=== PATIENT | male | born 1955 | race Caucasian/White ===

== ENCOUNTER 2023-05-03 15:55 | Inpatient (IN) | payer MEDICARE, OTHER, SELFPAY ==
[2023-05-03] VITALS (7 sets, daily range): BP systolic 126–150; BP diastolic 70–85; BMI 24.5
--- NOTE | 2023-05-03 13:50 | ED.CVA ---
History of Present Illness
General
Chief Complaint: CVA/TIA Symptoms
Source: patient and spouse
Time Seen by Provider: 05/03/23 13:40
Onset of Stroke Symptoms
Onset of symptoms known: Yes
Date of onset of symptoms: 05/03/23
Time of onset of symptoms: 12:30
Travel History
Have you had any contact with someone who has COVID-19?: No
Do you have any symptoms of coronavirus? Fever > 100 degrees, chills, cough, shortness of breath, sore throat, loss of taste or smell, muscle aches, or headache?: No
History of Present Illness
History of Present Illness:
67-year-old male presents to the emergency room complaining of right leg numbness. Patient states he had a sudden onset of right leg numbness. He has not appreciated any focal weakness or other symptoms besides the leg numbness. The numbness
persists. Patient has had a stroke in the past. He had a stroke involving the right side of his body 2016 for which she received tPA. He had an almost complete resolution of his symptoms ultimately. Patient had been feeling well up until the
onset of this leg numbness.
Past History
Past History
ED Past Medical History: CVA (He did have a CVA 07/2014 and another on 07/2015 where an MRI showed multiple silent strokes according to the family.), HTN, Hypercholesterolemia, Other (syncope) and Other (Has [employer] loop recorder)
Social History
Tobacco: Non-smoker
Alcohol: Daily (3 beers)
Drug: None
Personal:
Living: with family
Employment: Employed
Family History
Family History: Other (stroke and CAD)
Phy Exam
Physical Exam
Physical Exam:
General: Awake, Alert, Oriented X3. No acute distress.
Vitals: unremarkable
Head: Atraumatic
Eyes: Pupils equal, EOMI
Throat: Airway intact, no exudates
Neck: Trachea midline
Lungs: Clear and equal b/l
Heart: Regular rate, no murmurs
Abd: Soft, Nontender, No pulsatile mass
Neuro: Cranial nerves intact, mild weakness right foot. Proximal right leg strength is intact. Muscle strength intact about the rest of the body. Mild decrease sensation right lower extremity
Skin: Warm, dry, no rash
Extremities: pulses equal b/l, no edema
Course
Orders/Labs/Results
Orders:
Orders
05/03/23 13:47
CT Head W/o Cont STROKE ALERT Urgent
Comment:
Reason For Exam: r leg weakness
Cardiac Monitoring- Treatment ONCE
05/03/23 13:49
Electrocardiogram (*1) Stat
Reason for Study: Other
Other Reason for Exam: neuro symptoms
EKG- Treatment ONCE
05/03/23 13:51
Alcohol Urgent
Basic Metabolic Panel Urgent
C-Reactive Protein Urgent
Comment: ADD ON
Cardiovascular Evaluation Urgent
Comment: ADD ON
Complete Blood Count/With Diff Urgent
Erythrocyte Sed Rate Urgent
Comment: ADD ON
Ferritin Urgent
Comment: ADD ON
Folate Urgent
Comment: ADD ON
TSH Reflex To Free T4 Urgent
Comment: ADD ON
Vitamin B12 Urgent
Comment: ADD ON
05/03/23 14:07
MR Brain Without Contrast Routine
Comment:
Reason For Exam: ? left leg numbness
Recent pill cam endoscopy?: No
05/03/23 14:09
Add On- LAB Routine
Comments:: Please add to today's labs or draw as routine
Tests Added?: TSH reflex, Ferritin, Folate, Vit. B12, ESR, lipid profiles
Lorazepam [Ativan] 1 mg PO ONCE PRN PRN
05/03/23 14:51
CT Head & Neck Angio W/wo IV Routine
Comment:
Reason For Exam: stenosis
05/03/23 14:52
Add On- LAB Routine
Comments:: Please add to today's labs or draw as routine
Tests Added?: EtOH, CRP
05/03/23 Dinner
Cholesterol Lowering
At Your Request: Full Participation
Does patient need a safe tray?: No
Fluid Restriction: 1440 mL/day (48 oz)
05/03/23 15:42
Admit/Transfer Patient As Directed
Co-Sign Provider:
Level of Care: Inpatient admission
Assign to:: Telemetry
Physician / Group: Conrad
Diagnosis: Acute right leg numbness r/o CVA
Reason for Telemetry: CVA/TIA
Date to Stop Telemetry: 05/06/23
Time to Stop Telemetry: 11:00
Reason for Hospitalization: See progress note
Expected length of stay greater than two midnights?: Yes
ELOS- Estimated Length of Stay in days: 2
I certify the patient meets the requirements for IP care: Yes
05/03/23 15:44
Code Status As Directed
Resuscitation Status: Full Code
05/03/23 16:00
Clopidogrel Bisulfate [Plavix] 75 mg PO DAILY
05/03/23 17:08
Acetaminophen [Tylenol] 650 mg PO Q4HPRN PRN
Lorazepam [Ativan] 0.5 mg PO DAILYPRN PRN
05/03/23 17:08
NEUROLOGY CONSULT Routine
Consulting Provider: Haris Morris
Was physician already notified: Yes
Reason for consult: rt leg numbness
Urine Osmolality Random [Osmolality, Random Urine] Routine
Urine Sodium Routine
Activity As Directed
Activity Level: As Tolerated
I&O [Intake/ Output] As Directed
Frequency: q12h
Sequential Compression Device [Pneumatic Compression Sleeves] As Directed
Type: Knee high
Ot Eval And Treat Routine
Pt Eval And Treat Routine
Activity Level: As Tolerated
DX Deep Vein Thrombosis Video Routine
05/03/23 17:23
VerifyNow Aspirin Routine
Pt on daily regimen OR been given initial dose of aspirin?: Yes
Comment: may use blood in lab
05/03/23 17:25
Pantoprazole [Protonix] 40 mg PO DAILYPRN PRN
05/04/23 06:00
Basic Metabolic Panel IN AM
Cortisol, Random IN AM
TSH IN AM
05/04/23 08:00
Aspirin Low Dose EC [Aspir Low (Enteric Coated)] 81 mg PO DAILY
Atorvastatin [Lipitor] 20 mg PO DAILY
Cyanocobalamin [Vitamin B-12] 1,000 mcg PO DAILY
Felodipine Extended Release [Plendil Extended Release] 5 mg PO DAILY
Lisinopril [Zestril] 20 mg PO DAILY
05/06/23 11:00
DC Protocol for Telemetry ONCE
Abnormal Lab Results
05/03/23
13:51
MCH 32.5 H pg
(27.0-31.0)
Absolute Monos (auto) 0.7 H 10^3/uL
(0.1-0.6)
Monocytes % 11.0 H %
(1.7-9.3)
Sodium 130 L mmol/L
(135-145)
Chloride 95 L mmol/L
(98-107)
Folate > 20.0 H ng/ml
(2.76-20)
05/03/23 13:51
05/03/23 13:51
Vital Signs
Initial and Last Documented VS:
Initial Vital Signs
Temp Pulse Resp BP Pulse Ox
98.4 F 62 16 147/77 99
05/03/23 13:28 05/03/23 13:28 05/03/23 13:28 05/03/23 13:28 05/03/23 13:28
Last Documented Vital Signs
Temp Pulse Resp BP Pulse Ox
98.7 F 55 24 142/85 97
05/03/23 17:18 05/03/23 17:18 05/03/23 17:18 05/03/23 17:18 05/03/23 17:18
MDM/Problems Addressed
Differential Diagnosis Includes:
CVA, TIA, electrolyte abnormality, UTI
MDM/Problems Addressed:
Patient presents with right leg numbness. NIH score for me is 0-1.
*Radiology
Radiology exam reviewed: radiology read reviewed
*Pulse Oximetry
Patient hypoxic: no
*Critical Care Note
Total Time (30-74mins, 75-104mins- exclusive of procedures): Not Applicable
ED Attending Note
-
Portions of this chart may have been created with voice recognition software.� Occasional wrong word or��sound alike� substitutions may have occurred due to the inherent limitations of voice recognition software.
Discharge Plan
Departure
Patient Disposition: Admit
Date of Disposition: 05/03/23
Time of Disposition: 15:27
Admit to: Telemetry
Presentation/result/management discussed w/ accepting MD/DO: Hospitalist
Condition: Fair
Discharge Problem:
Acute CVA (cerebrovascular accident)
Interventions
Interventions:
*Risk Screen - Suicide Last Done: 05/03/23 17:23
*General Assessment Last Done: 05/03/23 13:28
*Neglect/Abuse Screening Last Done: 05/03/23 13:28
ED- Fall Risk Assessment Last Done: 05/03/23 13:47
*ED COVID-19 Vaccine History Last Done: 05/03/23 17:23
*Nursing Disposition Last Done: 05/03/23 16:28
ED- Pulmonary Assessment Last Done: 05/03/23 13:47
ED- Neurological Assessment Last Done: 05/03/23 13:47
ED- Cardiac Assessment Last Done: 05/03/23 13:47
ED Swallowing Screen Last Done: 05/03/23 13:47
Discharge Date and Time
Discharge Date/Time: 05/03/23 16:55
[2023-05-03 13:52] LABS: Glucose - Point of Care 87 mg/dl (70-99)
--- NOTE | 2023-05-03 13:54 | CON.NEURO ---
Neuro Assessment/Plan
Assessment
IMPRESSIONS/RECOMMENDATIONS:
Abrupt change in right lower extremity sensation
Differential diagnosis includes acute ischemic stroke, worsening of patient's underlying peripheral neuropathy, least likely related to spinal issues
Patient was not a candidate for either tenecteplase or intra-arterial thrombectomy due to NIH stroke scale less than 6
Plan
Would add clopidogrel to aspirin, continue aspirin
Check MRI of brain
Check CT angiogram of head and neck for potential stenosis
Check blood work to ensure efficacy of aspirin
Check blood work for other potential metabolic abnormalities
Medical educational material should be provided
DVT prophylaxis
Continue patient's usual atorvastatin 20 mg daily
Follow lipid profile
Continue vitamin B12 1000 mcg daily with lab value reevaluation
Will continue to follow patient.
Consultation
Order
Date of Consultation: 05/03/23
Requesting Provider:
Reason for Consult:
Subjective/Objective
Subjective Data
Date of Service: May 03, 2023
From my consultation on this patient June 2015:
R-handed
New onset of change of mentation leading to presentation to ED
Pt was in usual state of health prior to awakening at 05:30 on day of presentation.
Bedtime at 21:30, awoke at 04:00, and went to bathroom without issue. However, then awoke w/o alarm at 05:30 with severe headache (CORTEZ):
R shinto location
Quality: sharp then aching, moving to back of head
Intensity: 8/10 max, now 6/10
Neck also involved
CORTEZ began to improve 15 mins after start, however, began to have sense of disorientation followed by nausea
Then sat on side of bed leading to development of dry heaves followed by slurred speech and staggering of gait
05:55 called EMS
Then second attempt to ambulate also led to dry heaves, then slurring words, associated w/ disorientation
Does recall episode
Said yes to do you need EMS
Not yet back to normal, but has improved after ED arrival
No clear improving or worsening factors
Heaviness in chest 15 mins prior to this interview
06/2014: in [place] then had sense of change of mentation then visual change then syncope x 5 mins
Then awoke w/o residua, drove home w/o issues
Saw local neurologist
Check of EMG and MRI of brain
Chronic history of numbness in feet dx w/ neuropathy
~~~~
Subsequently, patient was treated with lifelong aspirin after undergoing transesophageal echocardiogram and having implantable bar turner which did not indicate a dysrhythmia also underwent hypercoagulable profile as an outpatient with an
increase in his usual simvastatin dosing. Patient was described as having a peripheral neuropathy presumed to be a combination of EtOH overexposure and mild B12 deficiency.
He reports increased headaches in past several months bitemporal in location. Absent photophobia, phonophobia, nausea, emesis. Usually treated with OTC medications, resolves after going to sleep.
In the past month he has experienced right heel discomfort similar to prior symptoms on left heel unable to run since prior to stroke in 2016.
Today at 1230 hrs., patient began experiencing new worsening of discomfort in the right lower extremity now involving the entire leg without involvement of the arm or face. The contralateral side was also not involved. No known modifying factors.
No other known associated symptoms.
Objective Data
Vital Signs
Temp Pulse Resp BP Pulse Ox
36.9 C 62 16 147/77 99
05/03/23 13:28 05/03/23 13:28 05/03/23 13:28 05/03/23 13:28 05/03/23 13:28
Patient Allergies
Sulfa (Sulfonamide Antibiotics) Allergy (Verified 05/03/23 13:26)
Unknown
CVA Assessment
Onset of Stroke Symptoms
Onset of symptoms known: Yes
Date of onset of symptoms: 05/03/23
Time of onset of symptoms: 12:30
Time pt last seen normal is known: Yes
Date last time pt seen normal: 05/03/23
Time last time pt seen normal: 12:30
NIH Stroke Score
Level of Consciousness: 0 - Alert
LOC Questions: 0-Answers both correctly
LOC Commands: 0-Performs both correctly
Best Horizontal Gaze: 0-Normal
Visual Garnica: 0=Normal, no visual loss
Facial Palsy: 0=Normal, symmetrical
Motor - Right Arm: 0=No drift 10 seconds
Motor - Left Arm: 0=No drift 10 seconds
Motor - Right Le-No drift 5 seconds
Motor - Left Le-No drift 5 seconds
Limb Ataxia: 0-Absent
Sensation: 0-Normal
Best Language: 0-No aphasia
Dysarthria: 0-Normal
Extinction and Inattention: 0-No abnormality
Total Score:: 0
Tenecteplase Contraindications
Inclusion and Exclusion criteria reviewed: Yes
Modified Gibran Score (MRS)
-
MRS Score:
Review of Systems
-
History Source: Patient
All other systems: Reviewed and negative
EENT: Negative Swallowing Difficulty
Respiratory: Negative Trouble Breathing
Cardiac: Negative Chest Pain
Abdomen/GI: Negative Incontinence of Stool
Genitourinary: Negative Incontinence
Musculoskeletal: Negative Back Pain or Neck Pain
Neuro: Negative Dizzy or Headache
Physical Exam
-
General: No Apparent Distress and Appears Stated Age
Eyes: OU Absent Papilledema, Round OU, [place] Conjunctivae and No Ptosis
HEENT: Anicteric and Moist Mucous Membranes
Neck: Full Range of Motion
Respiratory: No Dyspnea
Cardiac: No JVD
GI: Non-distended
Skin: Unremarkable
Extremities: No Clubbing, No Cyanosis and No Edema
Psych: Intact Judgement/Insight
Extended Neurological Exam
Mood & Affect: Mood Unremarkable and Affect Unremarkable
Attention Span & Concentration: Awake, Alert, Interactive and Mild Difficulty with 2 Step Request
Memory: Unremarkable
Tremor: Hand Tremor Absent and Head Tremor Absent
Speech: Quality Unremarkable and Quantity Unremarkable
Cranial Nerve II: Left Eye: Pupillary Reactivity Unremarkable, Pupillary Size Unremarkable and Visual Garnica Intact
Cranial Nerve II: Right Eye: Pupillary Reactivity Unremarkable, Pupillary Size Unremarkable and Visual Garnica Intact
Cranial Nerves III, IV, : Extraocular Movement: Extraocular Movement Full in all Directions
Cranial Nerve VII: Facial Symmetry: Normal Facial Symmetry
Cranial Nerve VIII: Hearing: Unremarkable Hearing to Normal Conversational Volume
Cranial Nerves IX, X: Palate Movement: Palate Elevation Symmetric
Cranial Nerve XI: Shoulder Shrug: Unremarkable
Cranial Nerve XII: Tongue Protusion: Midline
Muscle Strength, Overall: Full Throughout
Muscle Bulk & Tone: Bulk Unremarkable and Tone Unremarkable
Pronator Drift: No Drift in Upper Extremities
Deep Tendon Reflexes: Trace Throughout
Touch Sensation: Unremarkable
Coordination: Fkpsqx-blwk-ffwbwi Testing Unremarkable
Babinski Sign: Absent Bilaterally
Data Reviewed
-
CT Head: Image Reviewed
Labs: Ordered and Report Reviewed
Lipid Profile: Report Reviewed
Reviewed with: Physician, Nurse, Patient and Family
Old Records: Summarized
Medications
-
Home Medications
Medication Instructions Recorded
benazepril 20 mg tablet (Lotensin) 20 mg PO DAILY 06/27/15
hydrochlorothiazide 25 mg tablet 25 mg PO DAILY 06/27/15
lorazepam 0.5 mg tablet 0.5 mg PO DAILYPRN PRN anxiety 06/27/15
aspirin 81 mg tablet,delayed 81 mg PO DAILY 06/29/15
release
cyanocobalamin (vitamin B-12) 1,000 mcg PO DAILY ##30 06/29/15
1,000 mcg tablet
simvastatin 40 mg tablet 40 mg PO HS ##30 06/29/15
felodipine 5 mg tablet,extended 5 mg PO DAILY 05/21/17
release 24 hr
Past History
Past History
ED Past Medical History: CVA (He did have a CVA 07/2014 and another on 07/2015 where an MRI showed multiple silent strokes according to the family.), HTN, Hypercholesterolemia, Other (syncope, neuropathy) and Other (Has [employer] loop recorder)
Social History
Tobacco: Non-smoker
Alcohol: Daily (3 beers)
Drug: None
Personal:
Living: with family
Employment: Employed
Family History
Family History: Other (stroke and CAD)
[2023-05-03 14:07] LABS: % Basophils 0.5 % (0-2); % Eosinophils 0.9 % (0-6); % Immature Granulocytes 0.2 % (0-0.5); % Lymphocytes 24.3 % (20.5-51.1); % Neutrophils 63.1 % (42.2-75.2); Absolute Eosinophils 0.1 10^3/uL (0-0.7); Absolute Lymphocytes 1.6 10^3/uL (1.2-3.4); Absolute Monocytes 0.7 10^3/uL (0.1-0.6); Absolute Neutrophils 4.2 10^3/uL (1.4-6.5); Hematocrit 44.4 % (39.0-52.0); Hemoglobin 15.7 g/dL (13.0-18.0); Mean Corp Hgb Conc. 35.4 g/dL (33.0-37.0); Mean Corpuscular Hgb 32.5 pg (27.0-31.0); Mean Corpuscular Volume 91.9 fL (80.0-94.0); Mean Platelet Volume 9.2 fL (7.4-10.4); Nucleated Red Blood Cells % 0 % (-); Platelet Count 232 10^3/uL (130-400); Red Blood Cell Count 4.83 10^6/uL (4.70-6.10); Red Cell Dist. Width 12.6 % (11.5-14.5); White Blood Cell Count 6.6 10^3/uL (4.8-10.8)
[2023-05-03 14:21] LABS: Blood Urea Nitrogen 19 mg/dl (9-20); Calcium 9.4 mg/dl (8.4-10.2); Carbon Dioxide 28 mmol/L (22-30); Chloride 95 mmol/L (98-107); Estimated Creatinine Clearance 80 ml/min; Glucose 95 mg/dl (70-99); Potassium 3.7 mmol/L (3.5-5.1); Sodium 130 mmol/L (135-145); eGFR > 60.00
[2023-05-03 15:02] LABS: HDL Cholesterol 87 mg/dl; LDL Cholesterol, Calculated 73 mg/dl; Total Cholesterol 170 mg/dl (50-199); Triglyceride 54 mg/dl (10-149); Very Low Density Lipoprotein 10 mg/dl (0-30)
[2023-05-03 15:03] LABS: Alcohol None Detected
[2023-05-03 15:10] LABS: Erythrocyte Sed Rate 4 mm/hour (0-20)
--- NOTE | 2023-05-03 15:27 | EDRN ---
the pt pressed the call edmondson and this RN entered the pts room, the pt stated that he needed to use the bathroom, the pt was able to ambulate to the bathroom x1 assist with no issues, the pt did exhibit some weakness in the right leg however the pt
was able to bare weight and was able to ambulate
--- NOTE | 2023-05-03 15:40 | EDRN ---
awaiting for MRI to screen the pt
--- NOTE | 2023-05-03 16:11 | HPS.HSE ---
Family Physician
-
Family Physician: Carla Alaniz
Chief Complaint
-
Rt leg numbness
History of Present Illness
Presents with a sudden onset of right leg numbness.
He started to notice change 12:30 PM. He felt right leg was totally numb from knee below. He also feels weak in the right leg. Currently feeling improved in his right leg numbness. He has a peripheral neuropathy which gives some tingling but no
numbness or weakness.
No headache, visual symptoms or any other limb involvement.
No back pain, trauma or back issues. No prior history of sciatica.
Is known to have hypertension and also had a stroke with no residual deficit. A stroke was in 2016
Medical History
Past Medical History
Past Medical History: Reports CVA (2014 and 2016), HTN and Hypercholesterolemia
Past Surgical History: Reports None
Social History
Tobacco: Non-smoker
Alcohol: Daily
Drug: None
Personal:
Living: With Family
Family History
Family History: Not pertinent
Allergies / Home Medications
Allergies reflects when Allergies were last updated in [employer].
Home Medications with original date entered in [employer]
Allergy/Medication List:
Allergies
Allergy/AdvReac Type Severity Reaction Status Date / Time
Sulfa (Sulfonamide Allergy Unknown Verified 05/03/23 13:26
Antibiotics)
Home Medications
benazepril 20 mg tablet (Lotensin) 20 mg PO DAILY 06/27/15
hydrochlorothiazide 25 mg tablet 25 mg PO DAILY 06/27/15
lorazepam 0.5 mg tablet 0.5 mg PO DAILYPRN PRN anxiety 06/27/15
felodipine 5 mg tablet,extended release 24 hr 5 mg PO DAILY 05/21/17
aspirin 81 mg tablet,delayed release 81 mg PO DAILY Blood Clot Prevention/Tx 05/03/23
atorvastatin 20 mg tablet 20 mg PO DAILY 05/03/23
cyanocobalamin (vitamin B-12) 1,000 mcg tablet 1,000 mcg PO DAILY Supplement 05/03/23
omeprazole 20 mg capsule,delayed release 20 mg PO DAILY PRN heart burn 05/03/23
Review of Systems
-
A 12 point ROS was completed and negative except as noted: Yes
Physical Exam
Vital Signs
Vital Signs
Temp Pulse Resp BP Pulse Ox
98.4 F 62 16 150/75 99
05/03/23 13:28 05/03/23 13:28 05/03/23 13:28 05/03/23 14:00 05/03/23 14:30
Physical Exam
General: No Apparent Distress
HEENT: Moist mucous membranes
Respiratory: Clear
Cardiac: S1/S2 and Regular Rhythm
GI: Soft and No Hepatosplenomegaly
Neuro: AO x 3 and Facial Droop; No No Motor Deficits (Approximate is bilaterally 5/5; left lower extremity proximally and distally 5/5; right lower extremity distally 4/5 and proximally 5/5) or Slurred Speech
Psych: Calm; No Confused
Laboratory Results
-
05/03/23 13:51
05/03/23 13:51
Data Reviewed
-
CT Scan: Report Reviewed by me (CT head)
Lab Data: Labs Reviewed by me
Impression/Plan
-
Acute right leg numbness and weakness-suspicious for stroke. [place] not a candidate for TNK. Await CTA of the head and neck or IAT. Seen by neurology in the ER. Admit for stroke evaluation. Obtain MRI of the brain . Continue dual antiplatelet
agents as per neurology. Continue with statins. Check lipid profile.
Zdiekyznyhdj-qsftsgtem-wkhvaif hydrochlorothiazide. This was noted in outpatient labs according to patient. Check urine lites. Check TSH and cortisol. Hold hydrochlorothiazide and follow sodium. This moderate degree of hyponatremia should not
be giving his neurological symptoms as above.
Hypertension-permissive hypertension. Continue with his home medication and follow blood pressure closely
Full code
--- NOTE | 2023-05-03 16:20 | EDRN ---
this RN called the receiving unit and notified them that paper report was going to be tubed up
[2023-05-03] MEDS: PLAVIX 75 MG PO (16:23)
--- NOTE | 2023-05-03 16:47 | EDRN ---
the pt pressed the call edmondson and this RN entered the pts room, the pt stated that he needed to urinate, the pt was able to ambulate to the bathroom independently with no issues
[2023-05-03 17:22] LABS: TSH Reflex To Free T4 1.59 uIU/ml (0.47-4.68)
[2023-05-03 17:27] LABS: Ferritin 69.7 ng/ml (17.9-464.0)
[2023-05-03 17:58] LABS: Folate > 20.0 ng/ml (2.76-20); Vitamin B12 872 pg/ml (239-931)
[2023-05-03 18:04] LABS: VerifyNow Aspirin 429 ARU
--- NOTE | 2023-05-03 18:36 | PTCARENOTE ---
pt admitted to [facility]. NIH of 1 for leg numbness, pt oriented to room. at bedside.
[2023-05-03 20:29] LABS: Osmolality Urine 509 mOsm/kg (300-900); Urine Albumin Negative (Neg - Trace); Urine Bilirubin Negative (Negative); Urine Character Clear (Clear); Urine Color Yellow; Urine Glucose Negative (Negative); Urine Ketone Negative (Negative); Urine Leukocyte Negative (Negative); Urine Nitrite Negative (Negative); Urine Occult Blood Negative (Negative); Urine Urobilinogen Negative (Neg - 1+)
[2023-05-03 20:54] LABS: Urine Sodium 115 mmol/L (30-90)
[2023-05-03] MEDS: LIPITOR 20 MG PO (21:53)
[2023-05-04] VITALS (8 sets, daily range): BP systolic 101–146; BP diastolic 65–80; PULSE 62–68; O2SAT 98
[2023-05-04 06:41] LABS: Blood Urea Nitrogen 19 mg/dl (9-20); Calcium 9.3 mg/dl (8.4-10.2); Carbon Dioxide 29 mmol/L (22-30); Chloride 97 mmol/L (98-107); Estimated Creatinine Clearance 65 ml/min; Glucose 95 mg/dl (70-99); Potassium 4.3 mmol/L (3.5-5.1); Sodium 130 mmol/L (135-145); eGFR > 60.00
[2023-05-04 07:12] LABS: TSH 1.75 uIU/ml (0.47-4.68)
[2023-05-04] MEDS: ASPIR LOW (ENTERIC COATED) 81 MG PO (08:04)
[2023-05-04] MEDS: LIPITOR 20 MG PO (08:04)
[2023-05-04] MEDS: ZESTRIL 20 MG PO (08:05)
[2023-05-04] MEDS: PLENDIL EXTENDED RELEASE 5 MG PO (08:05)
[2023-05-04] MEDS: VITAMIN B-12 1000 MCG PO (08:05)
[2023-05-04] MEDS: PLAVIX 75 MG PO (08:05)
--- NOTE | 2023-05-04 11:33 | W.PN.HOSP.TC ---
Today's Communication/Plan
-
Follow MRI brain
Assessment / Plan
Assessment / Plan
Acute right leg numbness and weakness-suspicious for stroke.� [place] not a candidate for TNK or IAT.�CTA showed no LVO. Seen by neurology in the ER.� Admitted for stroke evaluation.� MRI of the brain pending .� Continue dual antiplatelet agents as
per neurology.� Continue with statins.� LDL 73 - consider increasing lipitor if ruled in for stroke.
Brzvfomirutw-xkclamjzb-hcvzlze hydrochlorothiazide.� This was noted in outpatient labs according to patient.� urine lites shows presence of ADH .� TSH and cortisol ok.� Continue to hold hydrochlorothiazide and follow sodium.�
Hypertension-BP under goal today. Continue with his home medication except HCTZ and follow blood pressure closely
Full code
Anticipated Discharge: Within 24 hours
Subjective/Interval History
-
Date of Service: May 04, 2023
Improving right leg sensation. He is able to feel better. Improved strength in the leg as well. No new symptoms.
Objective Data
-
Labs:
Laboratory Results
05/04/23
05:48
Sodium 130 L
Potassium 4.3
Chloride 97 L
Carbon Dioxide 29
BUN 19
Creatinine 1.1
Glucose 95
Calcium 9.3
Vital Signs:
Vital Signs
Temp Pulse Resp BP Pulse Ox
97.9 F 57 18 122/70 99
05/04/23 07:35 05/04/23 07:35 05/04/23 07:35 05/04/23 07:35 05/04/23 08:10
I&O
05/03/23 05/04/23 05/05/23
06:59 06:59 06:59
Intake Total 240 / 240
Output Total 375 / 375
Balance -135 / -135
Review of Systems
-
Respiratory: Denies Trouble Breathing
Cardiac: Denies Chest Pain or Palpitations
Abdomen/GI: Denies Abdominal Pain
Neuro: Reports Weakness; Denies Dizzy or Headache
Physical Exam
-
General: No Apparent Distress
Respiratory: Clear to Auscultation
Cardiac: Regular Rhythm and S1/S2
Neuro: AO x 3; Negative No Motor Deficits (rt foot 4+/5 compared to left foot; ), Slurred Speech or Facial Droop
Psych: Calm
Data Reviewed
-
Labs: Labs Reviewed by me
--- NOTE | 2023-05-04 16:23 | W.PN.NEURO.1 ---
Today's Communication / Plan
-
MRI Lspine
Neuro Assessment/Plan
Assessment
IMPRESSIONS/RECOMMENDATIONS:
Abrupt onset of RLE sensation with RLE weakness and urinary retention; also has history of underlying neuropathy; denies any radicular pain.
Differential diagnosis includes lumbar spinal pathology vs worsening of patient's underlying peripheral neuropathy; stroke ruled out on MRI brain
MRI brain:
There is no acute intracranial process.
No significant interval change. Mild diffuse volume loss. Moderate leukoaraiosis.
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
CTA head/neck:
NECK CTA:
There are vascular calcifications at the origin of the right vertebral artery and origin of the right and left ICA, however less than 50% stenosis.
No dissection.
HEAD CTA:
Anatomic variation. No focal stenosis or filling defect. No aneurysm.
Plan
d/c Plavix given lack of stroke on imaging, continue aspirin
Reviewed that no acute stroke was seen ongoing imaging with patient and
check MRI Lspine to evaluate for spinal etiology
Medical educational material should be provided
DVT prophylaxis
Continue patient's usual atorvastatin 20 mg daily
Continue vitamin B12 1000 mcg daily
Will continue to follow patient.
Subjective/Objective
Subjective Data
Date of Service: May 04, 2023
reports that RLE weakness has improved somewhat and he can now bear weight on it; otherwise still has abnormal sensation in RLE which he describes as it 'feeling like his leg isn't there.'
Objective Data
Vital Signs
Temp Pulse Resp BP Pulse Ox
97.8 F 73 18 130/80 98
05/04/23 11:15 05/04/23 11:15 05/04/23 11:15 05/04/23 11:15 05/04/23 11:15
Lab Results
05/03/23 13:51
05/04/23 05:48
Sodium 130 mmol/L (135-145) L 05/04/23 05:48
Potassium 4.3 mmol/L (3.5-5.1) 05/04/23 05:48
BUN 19 mg/dl (9-20) 05/04/23 05:48
Glucose 95 mg/dl (70-99) 05/04/23 05:48
Calcium 9.3 mg/dl (8.4-10.2) 05/04/23 05:48
LDL Cholesterol, Calc 73 mg/dl 05/03/23 13:51
Vitamin B12 872 pg/ml (239-931) 05/03/23 13:51
Patient Allergies
Sulfa (Sulfonamide Antibiotics) Allergy (Verified 05/03/23 13:26)
Unknown
Physical Exam
-
General: Well Developed, Well Nourished and No Apparent Distress
Extended Neurological Exam
Mood & Affect: Mood Unremarkable and Affect Unremarkable
Attention Span & Concentration: Awake, Alert and Interactive
Tremor: Hand Tremor Absent and Head Tremor Absent
Speech: Quality Unremarkable and Quantity Unremarkable
Cranial Nerve II: Left Eye: Pupillary Reactivity Unremarkable and Pupillary Size Unremarkable
Cranial Nerve II: Right Eye: Pupillary Reactivity Unremarkable and Pupillary Size Unremarkable
Cranial Nerves III, IV, : Extraocular Movement: Extraocular Movement Full in all Directions
Cranial Nerve V: Facial Sensation: Facial Sensation Unremarkable to Cold
Cranial Nerve VII: Facial Symmetry: Normal Facial Symmetry
Cranial Nerve VIII: Hearing: Unremarkable Hearing to Normal Conversational Volume
Cranial Nerves IX, X: Palate Movement: Palate Elevation Symmetric
Cranial Nerve XI: Shoulder Shrug: Unremarkable
Cranial Nerve XII: Tongue Protusion: Midline
Muscle Strength, Overall: Other (some giveaway weakness with hip flexion/knee extension and foot dorsiflexion in RLE, at least 4+/5; otherwise 5/5)
Deep Tendon Reflexes: Trace Throughout
Cold Sensation: Other (diminished sensation to the level of the knees bilaterally but reports feeling even more severe numbness on the anterior aspect of the distal RLE compared to the posterior aspect)
Babinski Sign: Absent Bilaterally
Modified Gibran Score (MRS)
-
MRS Score:
[2023-05-05 03:00] VITALS: BP 111/62
[2023-05-05 06:58] LABS: Blood Urea Nitrogen 23 mg/dl (9-20); Calcium 9.2 mg/dl (8.4-10.2); Carbon Dioxide 32 mmol/L (22-30); Chloride 98 mmol/L (98-107); Estimated Creatinine Clearance 72 ml/min; Glucose 95 mg/dl (70-99); Potassium 4.3 mmol/L (3.5-5.1); Sodium 131 mmol/L (135-145); eGFR > 60.00
[2023-05-05 07:00] VITALS: BP 134/70
[2023-05-05] MEDS: ASPIR LOW (ENTERIC COATED) 81 MG PO (09:20)
[2023-05-05] MEDS: VITAMIN B-12 1000 MCG PO (09:20)
[2023-05-05] MEDS: ZESTRIL 20 MG PO (09:20)
[2023-05-05] MEDS: LIPITOR 20 MG PO (09:20)
[2023-05-05] MEDS: PLENDIL EXTENDED RELEASE 5 MG PO (09:20)
[2023-05-05 11:00] VITALS: BP 118/66
--- NOTE | 2023-05-05 11:18 | W.PN.HOSP.TC ---
Today's Communication/Plan
-
Follow MRI of the lumbar spine
Assessment / Plan
Assessment / Plan
Acute right leg numbness and weakness-No evidence of stroke on MRI brain.�CTA showed no LVO. Seen by neurology in the ER.� MRI lumbar spine requested-pending neurology discontinue dual antiplatelet agents.� Continue with statins.� LDL 73. Continue
with PT OT.
Aifwvirpacgu-tzspqhtbi-opygtjw hydrochlorothiazide.� This was noted in outpatient labs according to patient.� urine lites shows presence of ADH .� TSH and cortisol ok.� Continue to hold hydrochlorothiazide and follow sodium-improving.�
Hypertension-BP under goal today. Continue with his home medication except HCTZ and follow blood pressure closely
Full code
Anticipated Discharge: 24 - 48 hours
Subjective/Interval History
-
Date of Service: May 05, 2023
Right leg numbness is better and strength is better but still persist.
No back pain.
No new symptoms.
Objective Data
-
Labs:
Laboratory Results
05/05/23
06:03
Sodium 131 L
Potassium 4.3
Chloride 98
Carbon Dioxide 32 H
BUN 23 H
Creatinine 1.0
Glucose 95
Calcium 9.2
Vital Signs:
Vital Signs
Temp Pulse Resp BP Pulse Ox
97.8 F 56 18 134/70 98
05/05/23 07:00 05/05/23 07:00 05/05/23 07:00 05/05/23 07:00 05/05/23 07:00
I&O
05/04/23 05/05/23 05/06/23
06:59 06:59 06:59
Intake Total 240 / 240 720 / 720
Output Total 375 / 375
Balance -135 / -135 720 / 720
Review of Systems
-
Constitutional: Denies Fever
Respiratory: Denies Trouble Breathing
Cardiac: Denies Chest Pain
Abdomen/GI: Denies Abdominal Pain, Nausea or Vomiting
Musculoskeletal: Denies Joint Pain
Neuro: Denies Dizzy
Physical Exam
-
General: No Apparent Distress
HEENT: Moist Mucous Membranes
Respiratory: Clear to Auscultation
Cardiac: Regular Rhythm and S1/S2
Neuro: AO x 3; Negative No Motor Deficits (rt ankle 4+/5 today)
Psych: Calm
Data Reviewed
-
MRI: Report Reviewed by me (MRI brain noted ;MRA noted)
--- NOTE | 2023-05-05 13:48 | CM ---
CM following re: d/c planning.
CM met with pt and at bedside to complete IA.
Pt resides with spouse in private residence.
Pt independent with mobility and ADLs.
Pt does have a walker if needed at home.
No VN.
PCP is Dr. Alaniz and pharmacy [facility] in [place].
Pt does not anticipate any d/c needs.
CM will continue to follow.
--- NOTE | 2023-05-05 15:46 | W.DS.TRANS ---
DC Summary - Inspector Assembly
-
Discharge Instructions:
Discharge Diagnosis/Procedures Right leg numbness -no acute stroke on MRI brain
or acute finding on MRI L spine
Diet Low Cholesterol
Activity As tolerated
Driving Restrictions As prior to admission
Bathing Restrictions None
Blood Work BMP blood work in one week - arrange through
your PCP
Other Services PT
Stop these medications: Hydrochlorthiazide -due to low sodium
Instructions:
Stand-Alone Forms:
Changes to Home Medications: Yes
Discharge Medications:
DC Medications w/original date entered in [facility]
benazepril 20 mg tablet (Lotensin) 20 mg PO DAILY Blood Pressure 06/27/15
lorazepam 0.5 mg tablet 0.5 mg PO HSPRN PRN SLEEP 06/27/15
felodipine 5 mg tablet,extended release 24 hr 5 mg PO DAILY Blood Pressure 05/21/17
aspirin 81 mg tablet,delayed release 81 mg PO DAILY Blood Clot Prevention/Tx 05/03/23
atorvastatin 20 mg tablet 20 mg PO HS High Cholesterol 05/03/23
cyanocobalamin (vitamin B-12) 1,000 mcg tablet 1,000 mcg PO DAILY Supplement 05/03/23
omeprazole 20 mg capsule,delayed release 20 mg PO DAILY PRN heart burn 05/03/23
Home Medication Changes
Discontinue medication-hydrochlorothiazide due to hyponatremia
Pending Results: No
--- NOTE | 2023-05-05 15:53 | W.DCSUMMARY ---
Discharge Summary
Discharge Data
Date of Admission: 05/03/23
Date of Discharge: 05/05/23
-
Pending Results: No
Hospital Course
Primary diagnosis:
Acute right lower leg numbness and weakness
Euvolemic hyponatremia
Secondary diagnosis:
Hypertension
Hospital course:
Patient with a prior history of left plantar fasciitis having had steroid treatments was being troubled with the right leg plantar fasciitis for a month and has been hopping on feet due to pain. On the day of admission he had an abrupt onset of
right lower extremity sensation-he described it as being numb and weak. He has a history of neuropathy but the this was not like his tingling numbness sensation. He denies any radicular pain. No trauma to the back. He was admitted for
neurological workup and had an MRI of the brain which showed no evidence of stroke, CT of head and neck angiogram showed no significant stenosis. Later on he went on to have a lumbar spine MRI which did not show any disc herniations. There was
mild to moderate DJD and moderate central canal and lateral recess stenosis at L3-4 and L4-5. MRI imaging did not elucidate obvious pathology. He was improving without any specific treatments.
If persistent advised him an EMG/NCS as OP.
He was seen by PT prior to discharge, recommended home health
Fmxfcvhaqygc-ajunkifoe-ktmorpf hydrochlorothiazide.� This was noted in outpatient labs according to patient.�� urine lites shows presence of ADH .�� TSH and cortisol ok.� Continue to hold hydrochlorothiazide and follow sodium-improving.� Went from 1
20-1 31
Hypertension-BP under goal today. Continue with his home medication except HCTZ
Consultants on board:
Neurology-Dr. Morris
Discharge Plan
-
Patient Disposition: Home with Home Care
Discharge Diagnosis/Procedures: Right leg numbness -no acute stroke on MRI brain or acute finding on MRI L spine
Diet: Low Cholesterol
Activity: As tolerated
Driving Restrictions: As prior to admission
Bathing Restrictions: None
Blood Work: BMP blood work in one week - arrange through your PCP
Other Services: PT
Stop these medications:: Hydrochlorthiazide -due to low sodium
Referrals:
Carla Alaniz DO [Family Provider] - in less than 1 week
Milan Ely MD [Active] - in one to two weeks (for EMG/Nerve conduction studies -call for an appointment)
Prescriptions:
Continued
lorazepam 0.5 MG tablet
0.5 mg PO HSPRN PRN (Reason: SLEEP)
benazepril [Lotensin] 20 MG tablet
20 mg PO DAILY
felodipine 5 MG tablet extended release 24 hr
5 mg PO DAILY
atorvastatin 20 mg Tablet
20 mg PO HS
omeprazole 20 mg Capsule,Delayed Release(Dr/Ec)
20 mg PO DAILY PRN (Reason: heart burn)
cyanocobalamin (vitamin B-12) 1,000 MCG tablet
1,000 mcg PO DAILY
aspirin 81 MG tablet,delayed release (DR/EC)
81 mg PO DAILY
Discontinued
hydrochlorothiazide 25 MG tablet
25 mg PO DAILY
Discharge Orders:
Discharge Patient (As Directed); Ordered 05/05/23
Ordered By: Kurt Martines
[2023-05-05 15:55] VITALS: BP 128/80; PULSE 81; O2SAT 98
== END 2023-05-05 17:48 | disposition home health service (06) | DRG 74 ==
LOC: 4 WEST ACU 15:55
PROVIDERS: Nurse Practitioner Gerontology; ADMITTING PHYSICIAN Internal Medicine; CONSULT PHYSICIAN Psychiatry & Neurology Neurology; EMERGENCY PHYSICIAN Emergency Medicine; FAMILY PHYSICIAN Family Medicine
DX: G62.9 Polyneuropathy, unspecified (principal); E87.1 Hypo-osmolality and hyponatremia; I10 Essential (primary) hypertension
CPT/HCPCS: 70450; 70496; 70498; 70551; 72148; 80048; 80061; 81003; 82077; 82533; 82607; 82728; 82746; 82962; 83935; 84300; 84443; 85025; 85576; 85652; 86140; 93005; 97116; 97162; 97166; 99285; Q9967

== ENCOUNTER → 2023-05-17 07:33 | Outpatient (REF) | payer MEDICARE, OTHER, SELFPAY | LOC: EMG 07:33 | PROVIDERS: ATTENDING PHYSICIAN Physician Assistant; FAMILY PHYSICIAN Family Medicine | DX: R20.0 Anesthesia of skin (principal) | CPT/HCPCS: 95886; 95912 ==

== ENCOUNTER → 2023-06-29 07:47 | Outpatient (REF) | payer MEDICARE, OTHER, SELFPAY | LOC: MRI 3T 07:47 | PROVIDERS: ATTENDING PHYSICIAN Nurse Practitioner Adult Health; FAMILY PHYSICIAN Family Medicine | DX: Z86.73 Personal history of transient ischemic attack (TIA), and cerebral infarction without residual deficits (principal) | CPT/HCPCS: 70551 ==